=== PATIENT | female | born 1940 | race Caucasian/White ===

== ENCOUNTER 2020-08-08 16:12 | Inpatient (IN) | payer MEDICARE, SELFPAY ==
[2020-08-08] VITALS (7 sets, daily range): BP systolic 108–158; BP diastolic 82–104; PULSE 77–144; RESP 16–20; TEMP 36.2–36.7; O2SAT 93–96; BMI 46.9
--- NOTE | 2020-08-08 17:13 | XRR_ITS ---
PROCEDURE INFORMATION: Exam: XR Chest, 1 View Exam date and time: 08/08/2020 6:04 PM Age: 80 years old Clinical indication: Chest pain; Type not specified TECHNIQUE: Imaging protocol: XR of the chest Views: 1 view. COMPARISON: CR Ribs LEFT w PA Chest [id number] 01/03/2019 11:51 AM FINDINGS: Lungs: Emphysematous change , interstitial prominence, and subcentimeter nodules. Pleural space: Mild left pleural thickening. Heart/Mediastinum: Borderline cardiomegaly. Bones/joints: Left rib fractures. Osteopenia and degenerative change. Soft tissues: Poorly defined density overlying the left lung base, believed to represent epicardial fat. PA and lateral chest radiographs can be performed for confirmation, as clinically indicated. XR/XR chest 1V portable [id number] IMPRESSION: 1. Emphysematous change , interstitial prominence, and subcentimeter nodules. 2. Left rib fractures. 3. Additional findings as described above.
--- NOTE | 2020-08-08 17:14 | ECG_ITS ---
[facility] Test Date: 2020-08-08 Pat Name: Irma Nava Department: Room: Gender: Female Financial Services Technician: : 1940 Requested By: Jyotsna Richards Order Number: [id number] Althea MD: Walt Valladares M.D. Measurements Intervals [place] Rate: 123 P: [place]: -1 QRS: -38 QRSD: 99 T: 33 QT: 302 QTc: 432 Interpretive Statements ATRIAL FLUTTER/TACHYCARDIA WITH RAPID VENTRICULAR RESPONSE LOW QRS VOLTAGE IN PRECORDIAL LEADS [QRS DEFLECTION < 1.0 mV IN CHEST LEADS] PATTERN CONSISTENT WITH PULMONARY DISEASE INCOMPLETE RIGHT BUNDLE BRANCH BLOCK [90+ ms QRS DURATION, TERMINAL R IN V1/V2, 40+ ms S IN I/aVL/V4/V5/V6] INFERIOR MYOCARDIAL INFARCTION , OF INDETERMINATE AGE [40+ ms Q WAVE AND/OR ST/T ABNORMALITY IN II/aVF] No previous ECG available for comparison Electronically Signed On 08-08-2020 19:43:47 CDT by Walt Valladares M.D. [email or web address]/[id number] eva
--- NOTE | 2020-08-08 17:26 | W.ED.CHESTPA ---
HPI - Chest Pain General: Chief Complaint: Chest Pain Stated Complaint: SOB Time Seen by Provider: 08/08/20 17:13 Source: patient Mode of arrival: ambulatory Limitations: no limitations History of Present Illness: HPI narrative: Ms. Nava is a very nice 80-year-old female who comes in complaining of chest tightness and shortness of breath. She states her symptoms have been present for the past week but is gotten worse today. Worse with exertion. Patient missed a history of congestive heart failure. He is unaware of any palpitations. Chest discomfort is described as a tightness. Denies any radiation, diaphoresis, nausea vomiting or other complaints. Patient states she is had similar symptoms numerous times in the past. At this time she denies any complaints or concerns. Associated symptoms: Reports dyspnea; Deny abdominal pain, diaphoresis, fever(s), nausea, palpitations, syncope or vomiting Review of Systems Const: Denies: fever(s), chills, body aches, fatigue, malaise or diaphoresis Eyes: Denies: change in vision, blurry vision, photophobia, eye discomfort, eye discharge, eye redness or yellow eyes ENMT: Denies: throat pain, odynophagia, hoarseness, swelling of lips/tongue, ear or mastoid pain, ear discharge, change in hearing or nasal discharge Card: Reports: chest pain; Denies: palpitations, irregular heart rhythm, edema, lightheadedness, syncope, pre-syncope, dyspnea on exertion or orthopnea Resp: Reports: dyspnea; Denies: productive cough, non-productive cough, wheezing, hemoptysis or chest congestion GI: Denies: abdominal pain, nausea, vomiting, hematemesis, coffee ground emesis, heartburn, diarrhea, constipation, GI cramping, hematochezia or melena : Denies: flank pain, dysuria, urinary frequency, urinary urgency or hematuria Musc: Denies: neck pain, back pain, extremity pain, extremity swelling, joint pain, joint swelling, joint redness, joint warmth or joint stiffness Skin/Breast: Denies: rash, pruritus, erythema, skin pain or skin tenderness Neuro: Denies: headache(s), numbness in extremities, weakness in extremities, sensory changes, lack of coordination, difficulty walking, dizziness, vertigo, confusion, Slurred speech present or seizure-like activity Ru/Lymph: Denies: easy bruising, easy bleeding, petechiae, purpura or enlarged lymph nodes All/Imm: Denies: urticaria, throat swelling, tongue swelling, facial swelling or acute wheezing PFSH ED PFSH: Medical History (Updated 08/08/20 @ 21:43 by Jyotsna Saleh) Heart failure Hyperlipidemia Hypertension Polymyalgia rheumatica Surgical History (Updated 08/08/20 @ 21:27 by Issa Sheth MD) H/O foot surgery Hx of cholecystectomy Family History Other Cancer Hyperlipidemia Stroke Social History Smoking and tobacco status: never smoked Alcohol intake: never Substance/Drug Use: never Lives independently: Yes Housing: House Current occupational status: retired 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 Physical Exam Const: COMMON NORMALS: no acute distress, patient oriented x3, no limitations and alert GENERAL APPEARANCE: cooperative HENMT: COMMON NORMALS: normocephalic, atraumatic, external ears normal, EAC's normal and Normal external nose present HEAD & SCALP: normal to inspection, normocephalic and atraumatic FACE & SINUS: normal facial exam and face symmetric NOSE: Normal external nose present and Normal nares present EXTERNAL EAR: Yes external ears normal EXTERNAL AUDITORY CANAL: EAC's normal MOUTH: Normal oral and palatal mucosa present, lip normal and tongue normal Eye: COMMON NORMALS: Equal, round and reactive pupils present and conjunctivae normal GENERAL EYE: appearance normal, both eyes and all related structures ALIGNMENT: Yes alignment normal PERIORBITAL: periorbital findings normal EYELID: eyelids normal CONJUNCTIVA: Yes conjunctivae normal SCLERA: sclerae normal PUPIL: Yes Equal, round and reactive pupils present Neck/C-Spine: COMMON NORMALS: full ROM, no lymphadenopathy, supple, no meningeal signs and no JVD GENERAL: Yes normal visual inspection and Yes trachea midline Chest: COMMONS NORMALS: normal inspection of the chest and normal palpation of entire chest wall Resp: COMMON NORMALS: normal respiratory effort, No retractions, No use of accessory muscles and clear to auscultation bilaterally EFFORT & INSPECTION: Yes able to speak in complete sentences and Yes symmetric chest movement AUSCULTATION: clear to auscultation bilaterally, no crackles, no rales, no rhonchi and no wheezes Cardio: COMMON NORMALS: no JVD, regular rhythm, S1 normal heart sound present and S2 normal heart sound present RATE: tachycardic RHYTHM: regular rhythm and abnormal rhythm irregularly irregular HEART SOUNDS: S1 normal heart sound present, S2 normal heart sound present, no click, no gallops, no murmurs and no rubs GI: COMMON NORMALS: Soft to palpation and No hepatosplenomegaly present PALPATION: Yes Soft to palpation, No Tenderness to palpation present (GI), No Guarding due to palpation present (GI), No Rigid due to palpation, Yes No hepatosplenomegaly present, No Hernia present, No Palpable mass present and No Pulsatile mass present : COMMON NORMALS: Yes no CVA tenderness BLADDER/KIDNEY EXAM: Yes no CVA tenderness EXTERNAL FEMALE EXAM: No Hernia present Back/Pelvis: COMMON NORMALS: no CVA tenderness, thoracic and lumbar spine normal to inspection, no thoracic nor lumbar tenderness and thoraco-lumbar ROM normal Extremity: COMMON NORMALS: normal to inspection, full ROM, capillary refill normal, no joint enlargement, no clubbing, cyanosis or edema and no calf tenderness Neuro: COMMON NORMALS: patient oriented x3, CN's II-XII intact bilaterally, moves all extremities, no focal motor deficits and no sensory deficits noted SENSORIUM/ORIENTATION: Yes alert MENINGEAL SIGNS: Yes no meningeal signs SPEECH: speech normal Psych: COMMON NORMALS: mental status grossly normal, Normal thought process present, cooperative, normal affect, speech normal and activity/motor behavior normal SPEECH: Yes normal speech THOUGHT PROCESS: Normal thought process present Skin: COMMON NORMALS: no rashes or lesions noted, turgor normal, no jaundice, no petechiae and no mottling GENERAL SKIN EXAM: no rashes or lesions noted and turgor normal Course Vital Signs: Vital signs: Vital Signs Temperature 98.0 F 08/08/20 20:33 Pulse Rate 121 H 08/08/20 20:53 Respiratory Rate 16 08/08/20 20:53 Blood Pressure 128/104 08/08/20 20:53 Pulse Oximetry 94 08/08/20 20:53 MDM - Chest Pain MDM Narrative: Medical decision making narrative: Blaze is a very nice 80-year-old female who comes in complaining of chest discomfort. Believe her complaints are primarily into her A. fib with RVR. She is given dose of Lovenox and started on Cardizem drip here. Patient is heart rate is improved but has not resolved completely. The case was endorsed to Dr. Wilkins and Dr. Sheth they agreed to admit for further evaluation and care. Lab Data: Attestation: I reviewed the patient's lab results. Labs: Lab Results 08/08/20 08/08/20 08/08/20 Range/Units 17:25 17:25 17:25 WBC 9.0 (4.0-10.0) 10^3/ uL RBC 4.05 L (4.1-5.3) 10^6/u L Hgb 12.5 (11.5-15.3) g/dL Hct 39.9 (37.0-47.0) % MCV 98.5 (81-99) fL MCH 30.9 (28.0-34.0) pg MCHC 31.3 (30.0-36.0) g/dL RDW 13.3 (12.1-15.1) % Plt Count 241 (130-400) 10^3/c mm MPV 9.0 (7.4-10.4) fL Neut % (Auto) 80.5 % Lymph % (Auto) 13.3 % Rains % (Auto) 4.8 % Eos % (Auto) 0.7 % Baso % (Auto) 0.3 % Neut # (Auto) 7.26 (1.8-7.7) 10^3/u L Lymph # (Auto) 1.2 (0.8-4.8) 10^3/u L Rains # (Auto) 0.4 (0.2-0.9) 10^3/u L Eos # (Auto) 0.1 (0.0-0.8) 10^3/u L Baso # (Auto) 0.0 (0.0-0.1) 10^3/u L Nucleated RBC % (a uto) 0 % Nucleated RBCs # 0.0 /100WBC Sodium 131 L (136-145) mmol/L Potassium 5.2 H (3.5-5.1) mmol/L Chloride 96 L (98-107) mmol/L Carbon Dioxide 28 (22-29) mmol/L Anion Gap 12.2 (5-19) BUN 14 (8-23) mg/dL Creatinine 0.9 (0.5-0.9) mg/dL GFR Calculation Not Reportable Glucose 116 H (65-115) mg/dL Calculated Osmolal ity 273 L (285-295) mOsm/k g Calcium 9.2 (8.5-10.5) mg/dL Magnesium 2.2 (1.7-2.3) mg/dL Total Bilirubin 0.2 (0.15-1.2) mg/dL AST 16 (0-32) U/L ALT 19 (0-33) U/L Alkaline Phosphata se 50 (35-105) IU/L Troponin T Baselin e 11 H (0-10) ng/L Total Protein 5.9 L (6.6-8.7) g/dL Albumin 3.8 (3.5-5.2) g/dL Globulin 2.1 (1.3-4.6) g/dL TSH 0.84 (0.27-4.20) uIU/ mL Imaging Data^: CXR: Attestation: I personally reviewed and interpreted this imaging study as follows: My impression: No acute cardiopulmonary findings. EKG Data^: EKG 1: Attestation: I personally reviewed and interpreted this EKG as follows: EKG interpretation date: 08/08/20 EKG interpretation time: 16:51 Interpretation: Atrial fibrillation/flutter with a ventricular rate of 123 beats a minute, left axis deviation, nonspecific ST and T wave changes. Discharge Plan Discharge Patient Disposition: Admitted As Inpatient Admit Provider: Margo Wilkins Clinical Impression: Atrial fibrillation with rapid ventricular response Condition: Stable Interventions: ED Discharge Assessment Last Done: 08/08/20 19:58 ED Charges Last Done: 08/08/20 19:58 Discharge Date/Time: 08/08/20 19:45 Coding Level of Care Code ED Billing And Accounting Staff Assistant for Chg Fwd Exam Comprehensive
[2020-08-08 17:42] LABS: Basophils % 0.3 %; Eosinophils # 0.1 10^3/uL (0.0-0.8); Eosinophils % 0.7 %; Hematocrit 39.9 % (37.0-47.0); Hemoglobin 12.5 g/dL (11.5-15.3); Lymphocytes # 1.2 10^3/uL (0.8-4.8); Lymphocytes % 13.3 %; Mean Corpuscular HGB Conc 31.3 g/dL (30.0-36.0); Mean Corpuscular Hemoglobin 30.9 pg (28.0-34.0); Mean Corpuscular Volume 98.5 fL (81-99); Monocytes # 0.4 10^3/uL (0.2-0.9); Monocytes % 4.8 %; Neutrophils # 7.26 10^3/uL (1.8-7.7); Neutrophils % 80.5 %; Nucleated Red Blood Cells % 0 %; Platelet Count 241 10^3/cmm (130-400); Red Blood Count 4.05 10^6/uL (4.1-5.3); Red Cell Distribution Width 13.3 % (12.1-15.1)
[2020-08-08] MEDS: sodium chloride 0.9% 1,000 ML 100 ML IV (17:44)
[2020-08-08 18:02] LABS: Troponin(5th) Baseline 11 ng/L (0-10)
[2020-08-08 18:10] LABS: Alanine Aminotransferase 19 U/L (0-33); Albumin Level 3.8 g/dL (3.5-5.2); Alkaline Phosphatase 50 IU/L (35-105); Anion Gap 12.2 (5-19); Aspartate Amino Transferase 16 U/L (0-32); Blood Urea Nitrogen 14 mg/dL (8-23); Calcium 9.2 mg/dL (8.5-10.5); Carbon Dioxide 28 mmol/L (22-29); Chloride 96 mmol/L (98-107); Globulin 2.1 g/dL (1.3-4.6); Glucose 116 mg/dL (65-115); Magnesium 2.2 mg/dL (1.7-2.3); Osmolality Calculated 273 mOsm/kg (285-295); Potassium 5.2 mmol/L (3.5-5.1); Sodium 131 mmol/L (136-145); Thyroid Stimulating Hormone 0.84 uIU/mL (0.27-4.20); Total Bilirubin 0.2 mg/dL (0.15-1.2); Total Protein 5.9 g/dL (6.6-8.7)
[2020-08-08] MEDS: enoxaparin 120 mg/0.8 mL Syringe SUBCUT (19:07)
--- NOTE | 2020-08-08 19:08 | PC.NURSE ---
[place] [address] and shown to ER doctor
--- NOTE | 2020-08-08 19:14 | ECG_ITS ---
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 Measurements Intervals [place] Rate: 114 P: PA: -1 QRS: -27 QRSD: 98 T: 32 QT: 293 QTc: 405 Interpretive Statements ATRIAL FIBRILLATION WITH RAPID VENTRICULAR RESPONSE BORDERLINE LEFT AXIS DEVIATION [QRS AXIS < -20] LOW QRS VOLTAGE IN PRECORDIAL LEADS [QRS DEFLECTION < 1.0 mV IN CHEST LEADS] ABNORMAL RHYTHM ECG Compared to ECG 08/08/2020 16:51:15 Atrial flutter no longer present Incomplete right bundle-branch block no longer present Myocardial infarct finding no longer present Electronically Signed On 08-08-2020 19:57:36 CDT by Walt Valladares M.D. [id number]
--- NOTE | 2020-08-08 19:36 | PM.HP ---
Providers/Chief Complaint Admitting Physician: Margo Wilkins MD Chief Complaint: SOB History of Present Illness Irma Nava is a 80 year old female who carries preserved ejection fraction heart failure grade 2 diastolic dysfunction came in with chief complaint of worsening shortness of breath. Patient is stating that her symptoms started about 48 hours before her presentation to the ER, she has been taking spironolactone and Lasix which has not helped her reduce leg swelling, she has been experiencing orthopnea, PND, dyspnea on exertion. She has not noticed any fever, cough, productive sputum. She is stating that she experiences chest discomfort all the time 14/06. She is taking prednisone for polymyalgia rheumatica. She is not a very good historian. She is denying change in her bowel habits, denying dysuria, nausea, vomiting. She does have history of left-sided rib fractures. Diagnosis in the ER revealed new onset A. fib RVR heart rate ranging between 1 20-1 30s, she has been given full dose therapeutic Lovenox along Cardizem gtt. at the time of my evaluation heart rate is 123, Cardizem drip is running at rate 5 mg/h, EKG revealed no ischemic or infarctive changes, troponin without significant delta, chest x-ray reveals mild vascular congestion BNP is pending Review of Systems Const: Reports: chills, body aches and fatigue; Denies: fever(s) Eyes: Denies: change in vision ENMT: Denies: throat pain Card: Reports: chest pain, dyspnea on exertion and orthopnea Resp: Reports: dyspnea; Denies: productive cough or non-productive cough GI: Denies: abdominal pain, nausea or vomiting : Denies: flank pain Musc: Denies: neck pain Skin/Breast: Denies: rash Neuro: Reports: confusion and difficulty communicating thoughts Psych: Reports: memory loss Endo: Denies: polyuria Ru/Lymph: Denies: easy bruising All/Imm: Denies: urticaria Medications/Allergies Home Medications Medication Instructions Recorded Confirmed Last Taken Type Tylenol Extra Strength 500 mg PO TID 08/08/20 08/08/20 08/08/20 History alendronate 70 mg PO Q7D 08/08/20 08/08/20 08/07/20 History aspirin See Rx Instructions .ROUTE .COMPLEX 08/08/20 08/08/20 08/08/20 History cetirizine [Zyrtec] 10 mg PO QPM 08/08/20 08/08/20 08/07/20 History enalapril maleate 20 mg PO BID 08/08/20 08/08/20 08/08/20 History furosemide See Rx Instructions .ROUTE .COMPLEX 08/08/20 08/08/20 08/07/20 History hydrocodone-acetaminophen 1 tab PO 6XD PRN 08/08/20 08/08/20 08/08/20 13:00 History memantine See Rx Instructions .ROUTE .COMPLEX 08/08/20 08/08/20 08/08/20 History metoprolol succinate 50 mg PO QPM 08/08/20 08/08/20 08/07/20 History naloxone [Narcan] See Rx Instructions .ROUTE .COMPLEX 08/08/20 08/08/20 Unknown History nitroglycerin 0.4 mg SUBLINGUAL Q5M PRN 08/08/20 08/08/20 08/06/20 History pravastatin 80 mg PO BEDTIME 08/08/20 08/08/20 08/07/20 History prednisone 15 mg PO DAILY 08/08/20 08/08/20 08/08/20 History spironolactone 12.5 mg PO QAM 08/08/20 08/08/20 08/08/20 History trazodone 300 mg PO BEDTIME 08/08/20 08/08/20 08/07/20 History venlafaxine 37.5 mg PO QPM 08/08/20 08/08/20 08/07/20 History venlafaxine 75 mg PO QAM 08/08/20 08/08/20 08/08/20 History vit C,G-Fc-whada-lutein-zeaxan 1 cap PO QPM 08/08/20 08/08/20 08/07/20 History [PreserVision AREDS-2] Allergies Allergy/AdvReac Type Severity Reaction Status Date / Time fentanyl Allergy Unknown Verified 08/08/20 20:55 oxycodone Allergy Unknown Verified 08/08/20 20:55 PFSH Acute PFSH: Medical History (Updated 08/08/20 @ 21:28 by Issa Sheth MD) Heart failure Hyperlipidemia Hypertension Polymyalgia rheumatica Surgical History (Updated 08/08/20 @ 21:27 by Issa Sheth MD) H/O foot surgery Hx of cholecystectomy Family History Other Cancer Hyperlipidemia Stroke Social History Smoking and tobacco status: never smoked Alcohol intake: never Substance/Drug Use: never Lives independently: Yes Housing: House 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 fib RVR heart rate 123 Reproducible chest pain Diminished breath sounds bilaterally with mild rhonchi Distended abdomen nontender bowel sound present No STEMI 1+ pitting edema Pedal edema positive No active respiratory distress Saturating well on room air EOMI, PERRLA Patient is hard of hearing Mild hoarseness of voice No neurological deficit Data : 08/08/20 17:25 08/08/20 17:25 A&P Assessment and plan (1) New onset a-fib: Status: Acute (2) Heart failure: Status: Acute (3) Morbid obesity: Status: Acute (4) Diastolic heart failure: Status: Acute Additional A&P Information New onset A. fib RVR Zoran vasc 5 We will initiate Eliquis 5 mg twice a day, currently on Cardizem drip 5 mg/h Echo in the morning, TSH normal We will check d-dimer, no signs of underlying sepsis or pneumonia I believe possible sleep apnea has a role to play for new onset A. fib RVR with underlying history of hypertension and obesity Preserved ejection fraction heart failure exacerbation BNP is pending, clinically looks fluid overloaded Mild congestion seen on chest x-ray I would increase her Lasix dosage and hold spironolactone along enalapril because of hyperkalemia Hyperkalemia secondary to spironolactone and enalapril: On hold Full code DVT prophylaxis not indicated currently patient is on Eliquis Cardiac diet Morbid obesity: She might benefit from outpatient sleep study Overnight pulse oximetry study requested Attestations Medical Necessity Statement*: Anticipating stay in the hospital course more than 2 midnights currently need IV Cardizem for A. fib RVR with underlying exacerbation of CHF Time Spent in Patient Care: (>than 50% of time spent in counselling and/or direct pt care on unit). 40mins Coding Level of Care Code Acute Welder Apprentice Gas for Chg Fwd Diagnoses New onset a-fib I48.91 Heart failure I50.9 Morbid obesity E66.01 Diastolic heart failure I50.30
[2020-08-08 20:02] LABS: Troponin 5 2HR 10.71 ng/L (0-10)
--- NOTE | 2020-08-08 20:37 | PC.NURSE ---
PT ARRIVED TO ROOM 112-1 FROM ED. PT TRANSFERRED FROM [facility] TO BED WITH 1X ASSIST. PT IS IN A-FIB WITH RVR HR 144. ON CARDIZEM GTT 5MG/HR. VS BP 158/82, HR 144, RR 17, SPO2 96%. PT DENIES CP AT THIS TIME. PT ORIENTATED TO ROOM. WILL CONTINUE TO MONITOR.
[2020-08-08 20:55] LABS: Troponin 5 2HR Delta -0.29 ABS# (0-10)
[2020-08-08] MEDS: atorvastatin 40 mg Tablet 20 MG PO (21:19)
[2020-08-08] MEDS: trazodone 100 mg Tablet 300 MG PO (21:19)
[2020-08-08 22:03] LABS: D Dimer 0.51 ug/mIFEU (0-0.59)
[2020-08-08 22:06] LABS: NT Pro B Type Natriuretic Pept 203 pg/mL (0-450)
--- NOTE | 2020-08-08 23:14 | ECG_ITS ---
[facility] Test Date: 2020-08-09 Pat Name: Irma Nava Department: Room: 112 Gender: Female Inbound Call Center Representative: : 1940 Requested By: Jyotsna Richards Order Number: [id number] Althea MD: Melissa De Santiago M.D. Measurements Intervals [place] Rate: 81 P: 91 GA: 122 QRS: -25 QRSD: 113 T: 34 QT: 392 QTc: 458 Interpretive Statements ATRIAL FLUTTER BORDERLINE LEFT AXIS DEVIATION [QRS AXIS < -20] LOW QRS VOLTAGE IN PRECORDIAL LEADS [QRS DEFLECTION < 1.0 mV IN CHEST LEADS] MODERATE INTRAVENTRICULAR CONDUCTION DELAY [110+ ms QRS DURATION] Compared to ECG 08/08/2020 19:05:54 Intraventricular conduction delay now present T-wave abnormality now present Atrial fibrillation no longer present Electronically Signed On 08-10-2020 9:38:10 CDT by Melissa De Santiago M.D. [id number]
[2020-08-09] VITALS (10 sets, daily range): BP systolic 108–149; BP diastolic 68–102; PULSE 72–117; RESP 14–24; TEMP 36.6–36.9; O2SAT 90–97
[2020-08-09 04:47] LABS: Basophils % 0.3 %; Eosinophils # 0.2 10^3/uL (0.0-0.8); Eosinophils % 2.3 %; Hemoglobin 12.6 g/dL (11.5-15.3); Lymphocytes # 2.8 10^3/uL (0.8-4.8); Lymphocytes % 29.8 %; Mean Corpuscular HGB Conc 30.7 g/dL (30.0-36.0); Mean Platelet Volume 9.5 fL (7.4-10.4); Monocytes # 0.5 10^3/uL (0.2-0.9); Monocytes % 5.7 %; Neutrophils % 61.3 %; Nucleated Red Blood Cells % 0 %; Platelet Count 211 10^3/cmm (130-400); Red Blood Count 4.06 10^6/uL (4.1-5.3); Red Cell Distribution Width 13.2 % (12.1-15.1); White Blood Count 9.3 10^3/uL (4.0-10.0)
[2020-08-09 05:15] LABS: Magnesium 2.2 mg/dL (1.7-2.3)
[2020-08-09 05:18] LABS: Anion Gap 14.2 (5-19); Blood Urea Nitrogen 12 mg/dL (8-23); Carbon Dioxide 29 mmol/L (22-29); Chloride 97 mmol/L (98-107); Glucose 101 mg/dL (65-115); Osmolality Calculated 282 mOsm/kg (285-295); Potassium 4.2 mmol/L (3.5-5.1); Sodium 136 mmol/L (136-145)
[2020-08-09] MEDS: venlafaxine ER (24HR) 75 mg Capsule PO (06:16)
--- NOTE | 2020-08-09 06:26 | PC.NURSE ---
PT IS IN RVR WITH A CARDIZEM GTT GOING AT 5MG/HR. PT HR 110-150'S WHICH INCREASES WITH EXERTION. PT HAS A BSC THAT THEY ARE ABLE TO TRANSFER TO WITH SBA. PT DENIES PAIN AT THIS TIME. WILL CONTINUE TO MONITOR.
--- NOTE | 2020-08-09 07:25 | PC.NURSE ---
Dr. Guido at bedside to evaluate patient. Physician to adjust medication regimen. Patient short of breath with exertion, o2 sats remain in 90s on RA. Patient assisted to side of bed to eat breakfast. Nurse to continue to monitor.
[2020-08-09] MEDS: metoprolol tartrate 50 mg Tablet PO ×2 (09:05→17:40)
[2020-08-09] MEDS: apixaban 5 mg Tablet PO ×2 (09:05→17:40)
[2020-08-09] MEDS: FUROsemide 10 mg/mL SDV 4mL 40 MG IVP (09:05)
[2020-08-09] MEDS: aspirin 81 mg EC Tablet PO (09:05)
[2020-08-09] MEDS: predniSONE 10 mg Tablet 15 MG PO (09:05)
[2020-08-09] MEDS: sennosides-docusate Tablet 1 TAB PO (09:05)
--- NOTE | 2020-08-09 09:28 | P.PN_ITS ---
Subjective Subjective: Interval history: History and physical reviewed. Patient reports she feels a little bit better this morning. Still tired. Medications: Reviewed: Yes Vitals/I&O/Wt Last Vital Signs Temp 97.8 F 08/09/20 07:15 Pulse 113 H 08/09/20 07:15 Resp 21 H 08/09/20 07:15 BP 139/93 08/09/20 07:15 Pulse Ox 94 08/09/20 07:15 08/08/20 08/09/20 08/09/20 22:59 06:59 14:59 Intake Total 16.75 / 16.75 52.084 / 68.834 366 / 366 Balance 16.75 / 16.75 52.084 / 68.834 366 / 366 Weight last 48 hrs Weight 120.202 kg Physical Exam Narrative: EXAM NARRATIVE: General exam no apparent distress Cardiovascular irregular, irregular with accelerated rate. No murmur Lungs clear no wheezing or crackles Abdomen is soft nontender with positive bowel sounds Extremities 1+ bilateral edema. Data : 08/09/20 03:50 08/09/20 03:50 A&P Assessment and plan (1) New onset a-fib: Continue anticoagulation Currently on a Cardizem drip Initiate metoprolol 50 mg twice daily, and wean off Cardizem drip to try to achieve rate control. I think this will likely be sufficient to control patient's symptoms. Risks and benefits of anticoagulation discussed with the patient Noted potassium, TSH, magnesium level normal Status: Acute (2) Heart failure: Discontinue oral Lasix Placed on Lasix 40 mg IV every 24 hours Await echocardiogram Status: Acute (3) Morbid obesity: Status: Acute (4) Diastolic heart failure: See notations regarding heart failure above Status: Acute Additional A&P Information Hyperkalemia on admission. Holding Aldactone, RINKU inhibitor History of polymyalgia rheumatica. Continue prednisone History of hypertension. Initiation of metoprolol, higher dose Full code Eliquis will suffice for DVT prophylaxis Attestations Medical Necessity Statement*: Needs continued hospitalization for treatment of atrial fibrillation with rapid ventricular rate Coding Level of Care Code Acute Senior Hr Business Partner for Chg Fwd Diagnoses New onset a-fib I48.91 Heart failure I50.9 Morbid obesity E66.01 Diastolic heart failure I50.30
[2020-08-09] MEDS: HYDROcodone-acetaminophen 10-325 mg Tablet 1 TAB PO ×2 (09:56→15:28)
--- NOTE | 2020-08-09 10:50 | PC.NURSE ---
Dr. Guido updated on patient condition. Patient is a flutter HR 60s-70s. No new orders received.
--- NOTE | 2020-08-09 11:00 | PC.NURSE ---
Cardizem gtt off at 1055. Nurse to continue to monitor.
--- NOTE | 2020-08-09 16:14 | PC.NURSE ---
Dr. Guido updated on patient condition. With exertion, HR increased to 120s-130s a fib. Telephone order received to administer 500 mcg Digoxin IVP on time. Nurse to continue to monitor.
[2020-08-09] MEDS: digoxin 250 mcg/ml INJ 2 mL 500 MCG IVP (16:22)
[2020-08-09] MEDS: memantine 5 mg tablet 10 MG PO (17:40)
[2020-08-09] MEDS: venlafaxine ER (24HR) 37.5 mg Capsule PO (17:40)
--- NOTE | 2020-08-09 18:53 | PC.NURSE ---
IV in Left FA infiltrated. IV removed. Compression drsg applied to site. Patient tolerated well. 4 attempts to reinitiate IV made by 2 RNS. Second RN established a 22# IV in Right Wrist. Patient tolerated well. Nurse to continue to monitor.
--- NOTE | 2020-08-09 20:33 | USCV_ITS ---
Nava, Irma Age: 80 Gender: F : 1940 Exam Date: 08/09/2020 05:58 Ordering Phys: Issa Sheth MD Technologist: Tracee Larsen [place] [facility] [place] NEW [place] SET AFIB BP: 149 / 102 HR: 100 Rhythm: Atrial fibrillation Technical Quality: Adequate MEASUREMENTS (Male / Female) Normal Values 2D ECHO LV Diastolic Diameter PLAX 4.5 cm 4.2 - 5.9 / 3.9 - 5.3 cm LV Systolic Diameter PLAX 3.5 cm LV Chamber Size 3.0 cm IVS Diastolic Thickness 1.2 cm 0.6 - 1.0 / 0.6 - 0.9 cm IVS Systolic Thickness 1.4 cm LVPW Diastolic Thickness 1.4 cm 0.6 - 1.0 / 0.6 - 0.9 cm LVPW Systolic Thickness 1.7 cm RV Chamber Size 2.0 cm LVOT Diameter 2.0 cm LV Ejection Fraction 2D Teich 44.3 % LV Ejection Fraction MOD 2C 26.9 % LV Ejection Fraction 2C AL 26.5 % LA Diameter 4.8 cm LA Width 3.3 cm LA Height 4.7 cm RA Width 3.7 cm RA Height 3.3 cm Aorta at Sinotubular Diameter 2.8 cm M-MODE LV Diastolic Diameter MM 5.8 cm 4.2 - 5.9 / 3.9 - 5.3 cm LV Systolic Diameter MM 4.2 cm LV Ejection Fraction MM Teich 54.5 % IVS Diastolic Thickness MM 1.3 cm 0.6 - 1.0 / 0.6 - 0.9 cm IVS Systolic Thickness MM 1.5 cm LVPW Diastolic Thickness MM 1.2 cm 0.6 - 1.0 / 0.6 - 0.9 cm LVPW Systolic Thickness MM 1.5 cm RV Diastolic Diameter MM 1.7 cm Aortic Annulus Diameter 3.0 cm LA Ao Ratio MM 1.5 MV E Point Septal Separation 0.4 cm DOPPLER AV Peak Velocity 128.0 cm/s LVOT Peak Velocity 83.0 cm/s AV Area Cont Eq vti 2.0 cm squared AV Area Cont Eq pk 2.1 cm squared MV Area PHT 5.0 cm squared MV E' Velocity 10.0 cm/s Mitral E to MV E' Ratio 8.8 Mitral E to LV E' Lateral Ratio 9.6 Mitral E to LV E' Septal Ratio 8.2 TR Peak Velocity 234.5 cm/s TR Peak Gradient 22.0 mmHg TR Mean Velocity 186.3 cm/s TR Mean Gradient 15.1 mmHg TR Velocity Time Integral 75.3 cm TV Peak E Velocity 63.0 cm/s Right Atrial Pressure 3.0 mmHg Pulmonary Artery Systolic Pressu 25.0 mmHg PV Peak Velocity 81.0 cm/s RV Acceleration Time 0.1 s RV Ejection Time 0.3 s RV AcT/ET 0.3 FINDINGS Left Ventricle Normal left ventricular size. LV systolic function is mild to moderately reduced with EF of 40 to 45%. Mild to moderate global hypokinesis is noted. Mild LVH is. Diastolic function cannot be assessed because of atrial fibrillation Right Ventricle The right ventricle is normal in size and function. Right Atrium The right atrium is normal in size. Left Atrium The left atrium is enlarged. Mitral Valve Structurally normal mitral valve without significant stenosis or prolapse. There is no mitral regurgitation. Aortic Valve Structurally normal aortic valve without significant sclerosis or stenosis. There is no aortic regurgitation. Tricuspid Valve Structurally normal tricuspid valve without significant stenosis or regurgitation. RVSP is 25+ RA pressure. IVC is not well- visualized Pulmonic Valve Structurally normal pulmonic valve without significant stenosis. There is no pulmonic regurgitation. Pericardium Normal pericardium without effusion. Aorta Normal ascending aorta dimension. CONCLUSIONS LV systolic function is mild to moderately reduced with EF of 40-45%. Diastolic function is indeterminate because of atrial fibrillation. Compared to previous echocardiogram from 2014, EF is mildly reduced. Shane Johnston MD (Electronically Signed) Final Date: 09 August 2020 08:51 S
[2020-08-09] MEDS: trazodone 150 mg Tablet 300 MG PO (21:21)
[2020-08-09] MEDS: atorvastatin 40 mg Tablet 20 MG PO (21:22)
[2020-08-09] MEDS: digoxin 250 mcg/ml INJ 2 mL IVP (22:21)
[2020-08-10] VITALS (9 sets, daily range): BP systolic 96–149; BP diastolic 54–102; PULSE 75–125; RESP 14–23; TEMP 36.6–36.9; O2SAT 92–97
[2020-08-10 03:50] LABS: Basophils % 0.5 %; Eosinophils # 0.2 10^3/uL (0.0-0.8); Eosinophils % 2.1 %; Hematocrit 38.1 % (37.0-47.0); Lymphocytes # 1.9 10^3/uL (0.8-4.8); Lymphocytes % 22.9 %; Mean Corpuscular HGB Conc 31.5 g/dL (30.0-36.0); Mean Corpuscular Hemoglobin 31.3 pg (28.0-34.0); Mean Corpuscular Volume 99.2 fL (81-99); Mean Platelet Volume 8.9 fL (7.4-10.4); Monocytes # 0.5 10^3/uL (0.2-0.9); Monocytes % 6.1 %; Neutrophils # 5.59 10^3/uL (1.8-7.7); Neutrophils % 67.8 %; Nucleated Red Blood Cells % 0 %; Platelet Count 206 10^3/cmm (130-400); Red Blood Count 3.84 10^6/uL (4.1-5.3); Red Cell Distribution Width 13.4 % (12.1-15.1); White Blood Count 8.2 10^3/uL (4.0-10.0)
[2020-08-10 04:09] LABS: Anion Gap 11.2 (5-19); Blood Urea Nitrogen 15 mg/dL (8-23); Calcium 8.9 mg/dL (8.5-10.5); Carbon Dioxide 29 mmol/L (22-29); Chloride 100 mmol/L (98-107); Glucose 100 mg/dL (65-115); Osmolality Calculated 283 mOsm/kg (285-295); Potassium 4.2 mmol/L (3.5-5.1); Sodium 136 mmol/L (136-145)
[2020-08-10] MEDS: venlafaxine ER (24HR) 75 mg Capsule PO (06:02)
--- NOTE | 2020-08-10 06:03 | PC.NURSE ---
End of shift: Patient has had a uneventful shift. Patient denies any pain at this time. Remains alert and oriented. Will continue to monitor.
[2020-08-10] MEDS: FUROsemide 10 mg/mL SDV 4mL 40 MG IVP (07:51)
[2020-08-10] MEDS: memantine 5 mg tablet PO (07:51)
[2020-08-10] MEDS: aspirin 81 mg EC Tablet PO (09:10)
[2020-08-10] MEDS: metoprolol tartrate 50 mg Tablet 75 MG PO ×2 (09:10→18:01)
[2020-08-10] MEDS: predniSONE 10 mg Tablet 15 MG PO (09:10)
[2020-08-10] MEDS: digoxin 250 mcg Tablet PO (09:10)
[2020-08-10] MEDS: apixaban 5 mg Tablet PO ×2 (09:11→18:01)
[2020-08-10] MEDS: sennosides-docusate Tablet 1 TAB PO (09:11)
[2020-08-10] MEDS: HYDROcodone-acetaminophen 10-325 mg Tablet 1 TAB PO ×3 (10:21→18:01)
--- NOTE | 2020-08-10 13:38 | PM.PN ---
Subjective Subjective: Interval history: Irma reports she is doing okay. No specific concerns. No chest pain or shortness of breath. Medications: Reviewed: Yes Vitals/I&O/Wt Last Vital Signs Temp 98.5 F 08/10/20 07:00 Pulse 77 08/10/20 11:00 Resp 14 08/10/20 11:00 BP 123/94 08/10/20 11:00 Pulse Ox 92 08/10/20 11:00 08/09/20 08/10/20 08/10/20 22:59 06:59 14:59 Intake Total 480 / 1002.584 240 / 1242.584 Balance 480 / 1002.584 240 / 1242.584 Weight last 48 hrs Weight 120.202 kg Physical Exam Narrative: EXAM NARRATIVE: General exam no apparent distress Cardiovascular irregular, irregular with better control of rate. No murmur Lungs clear no wheezing or crackles Abdomen is soft nontender with positive bowel sounds Extremities 1+ bilateral edema. Data : 08/10/20 03:23 08/10/20 03:23 A&P Assessment and plan (1) New onset a-fib: Continue anticoagulation Increase metoprolol to 75 mg twice daily Continue digoxin 0.25 mg daily that was added yesterday Noted potassium, TSH, magnesium level normal Status: Acute (2) Heart failure: Continue Lasix 40 mg IV every 24 hours Echocardiogram demonstrated diminished EF, 40 to 45%. Global hypokinesis. Status: Acute (3) Morbid obesity: Status: Acute (4) Diastolic heart failure: See notations regarding heart failure above Continue Lasix IV. She appears better compensated. Status: Acute Additional A&P Information Hyperkalemia on admission. Holding Aldactone, RINKU inhibitor History of polymyalgia rheumatica. Continue prednisone History of hypertension. Initiation of metoprolol, higher dose Full code Eliquis will suffice for DVT prophylaxis No need for laboratory tomorrow Attestations Medical Necessity Statement*: Needs continued hospitalization for adjustment of medication for better rate control with atrial fibrillation with rapid ventricular rate. Coding Level of Care Code Acute Intellectual Property Paralegal for Marla Franklin Diagnoses New onset a-fib I48.91 Heart failure I50.9 Morbid obesity E66.01 Diastolic heart failure I50.30
[2020-08-10] MEDS: venlafaxine ER (24HR) 37.5 mg Capsule PO (18:02)
[2020-08-10] MEDS: memantine 5 mg tablet 10 MG PO (18:02)
[2020-08-10] MEDS: metoprolol tartrate 25 mg Tablet PO (18:52)
--- NOTE | 2020-08-10 20:28 | PC.NURSE ---
Rounding: Patient alert and oriented. Assisted to the bathroom. Patient denies any pain. Will continue to monitor.
[2020-08-10] MEDS: atorvastatin 40 mg Tablet 20 MG PO (21:09)
[2020-08-10] MEDS: trazodone 150 mg Tablet 300 MG PO (21:09)
[2020-08-11 03:00] VITALS: BP 130/85; PULSE 89; RESP 16; TEMP 36.8; O2SAT 96
[2020-08-11] MEDS: venlafaxine ER (24HR) 75 mg Capsule PO (05:41)
[2020-08-11] MEDS: memantine 5 mg tablet PO (05:41)
[2020-08-11 06:42] LABS: Anion Gap 12.9 (5-19); Blood Urea Nitrogen 15 mg/dL (8-23); Carbon Dioxide 28 mmol/L (22-29); Chloride 98 mmol/L (98-107); Glucose 111 mg/dL (65-115); Osmolality Calculated 282 mOsm/kg (285-295); Potassium 3.9 mmol/L (3.5-5.1); Sodium 135 mmol/L (136-145)
[2020-08-11 07:00] VITALS: BP 156/84; PULSE 74; RESP 17; TEMP 36.8; O2SAT 96
[2020-08-11] MEDS: metoprolol tartrate 50 mg Tablet 100 MG PO (08:13)
[2020-08-11] MEDS: predniSONE 10 mg Tablet 15 MG PO (08:14)
[2020-08-11] MEDS: aspirin 81 mg EC Tablet PO (08:14)
[2020-08-11] MEDS: HYDROcodone-acetaminophen 10-325 mg Tablet 1 TAB PO (08:14)
[2020-08-11 08:15] VITALS: PULSE 78
[2020-08-11] MEDS: FUROsemide 40 mg Tablet PO (08:15)
[2020-08-11] MEDS: apixaban 5 mg Tablet PO (08:15)
[2020-08-11] MEDS: digoxin 250 mcg Tablet PO (08:15)
--- NOTE | 2020-08-11 09:14 | P.DS_ITS ---
Discharge Providers Date of Admission: 08/08/20 18:26 Date of Discharge: August 11, 2020 Attending Provider at Admission: Margo Wilkins MD Attending Provider at Discharge: Sony Guido MD Diagnoses at Discharge Discharge Diagnosis (1) New onset a-fib: Status: Acute (2) Heart failure: Status: Acute (3) Morbid obesity: Status: Acute (4) Diastolic heart failure: Status: Acute Reason for Visit Reason for Visit: SOB Hospital Course Hospital Course: Irma is an 80-year-old white female who presented to the hospital with new onset atrial fibrillation, flutter. She was initially put on a Cardizem drip. Her beta-katt was increased gradually during the hospital stay. Digoxin was added. Ultimately rate was controlled with 100 mg of metoprolol twice daily, and digoxin 0.25 mg daily. Cardizem was not added to the regimen secondary to her echocardiogram, showing ejection fraction of 40 to 45%. Other changes in the hospital included increase Lasix. Aldactone and patient's enalapril initially discontinued secondary to hyperkalemia but will add lisinopril 2.5 mg daily back on discharge. She was also started on Eliquis after risks and benefits of medication were discussed. Physical Exam Narrative: EXAM NARRATIVE: General exam no apparent distress Cardiovascular irregular, irregular with controlled rhythm Lungs clear Abdomen is soft positive bowel sounds Extremities no cyanosis clubbing or edema Discharge Data Data Completed and Pending: Completed Studies During Hospitalization Category Date Time Status XR chest 1V everette ble [id number] Stat Exams 08/08/20 17:13 Completed CV echo complete* [id number] Routine Ultrasound 08/09/20 20:33 Completed Labs from last 24 hours 08/11/20 06:02 Sodium 135 L Potassium 3.9 Chloride 98 Carbon Dioxide 28 Anion Gap 12.9 BUN 15 Creatinine 1.0 H GFR Calculation Not Reportable Glucose 111 Calculated Osmolal ity 282 L Calcium 9.0 Vitals: Last Vital Signs Temp 98.2 F 08/11/20 07:00 Pulse 78 08/11/20 08:15 Resp 17 08/11/20 07:00 BP 156/84 08/11/20 07:00 Pulse Ox 96 08/11/20 07:00 Discharge Plan Discharge Patient Disposition: Home Condition: Stable Prescriptions: New Eliquis 5 mg Tablet 5 mg PO BID Qty: 60 RF: 0 digoxin 250 mcg (0.25 mg) Tablet 250 mcg PO DAILY Qty: 30 RF: 0 metoprolol tartrate 50 mg Tablet 100 mg PO BID Qty: 60 RF: 0 furosemide 40 mg Tablet 40 mg PO DAILY@0800 Qty: 30 RF: 0 lisinopril 2.5 mg tablet 2.5 mg PO DAILY Qty: 30 RF: 0 Continued prednisone 10 mg tablet 15 mg PO DAILY RF: 0 venlafaxine 75 mg capsule,extended release 24hr 75 mg PO QAM RF: 0 Zyrtec 10 mg Tablet 10 mg PO QPM RF: 0 alendronate 70 mg tablet 70 mg PO Q7D RF: 0 hydrocodone-acetaminophen 10-325 mg tablet 1 tab PO 6XD PRN (Reason: Pain) RF: 0 aspirin 81 mg Tablet,Delayed Release (Dr/Ec) See Rx Instructions .ROUTE .COMPLEX RF: 0 pravastatin 80 mg tablet 80 mg PO BEDTIME RF: 0 trazodone 100 mg tablet 300 mg PO BEDTIME RF: 0 venlafaxine 37.5 mg tablet 37.5 mg PO QPM RF: 0 nitroglycerin 0.4 mg tablet, sublingual 0.4 mg sublingual Q5M PRN (Reason: Chest Pain) RF: 0 memantine 5 mg tablet See Rx Instructions .ROUTE .COMPLEX RF: 0 PreserVision AREDS-2 [id number] dy-[id number]-dt-mg Capsule 1 cap PO QPM RF: 0 Narcan 4 mg/actuation spray,non-aerosol See Rx Instructions .ROUTE .COMPLEX RF: 0 Tylenol Extra Strength 500 mg PO TID RF: 0 Discontinued metoprolol succinate 50 mg tablet extended release 24 hr 50 mg PO QPM RF: 0 enalapril maleate 20 mg tablet 20 mg PO BID RF: 0 spironolactone 25 mg tablet 12.5 mg PO QAM RF: 0 furosemide 20 mg tablet See Rx Instructions .ROUTE .COMPLEX RF: 0 Discharge Orders: Discharge Order (Routine); Ordered 08/11/20 Ordered By: Sony Guido Referrals: Walt Valladares MD [Physician] - 2 weeks Javier Sorenson RN [Emergency Nurse] - 4-7 days (BMP, digoxin level on follow-up) Discharge Diet: Cardiac Discharge Activity: Increase activity as tolerated Activity Restrictions/Additional Instructions: Take all medicine as prescribed. Follow-up with cardiology 2 weeks. Follow-up with your primary care provider 3 to 5 days with BMP and digoxin level. Discharge Attestations Time Spent in Discharge Care*: greater than 30 min Quality Metrics Clinical Quality Measures During this hospital stay, did patient experience: None Coding Level of Care Code Acute Fruit Loader Machine Operator for Chg Fwd Diagnoses New onset a-fib I48.91 Heart failure I50.9 Morbid obesity E66.01 Diastolic heart failure I50.30
--- NOTE | 2020-08-11 09:19 | PC.SOCIAL ---
Pg 2 IMM Explained to pt Pg 2 IMM. Pt verbally understands. No questions voiced. Provided pt a copy. Signed, dated, & timed a copy & placed in chart.
[2020-08-11 10:07] VITALS: BP 156/84; PULSE 78; RESP 17; TEMP 36.8; O2SAT 96
== END 2020-08-11 11:02 | disposition home or self-care (01) | DRG 308 ==
LOC: ER 17:13 → CSU 20:14
PROVIDERS: Emergency Medicine; Internal Medicine; Admitting Provider Student in an Organized Health Care Education/Training Program; Visit Provider Internal Medicine
DX: I48.91 Unspecified atrial fibrillation (principal); I50.31 Acute diastolic (congestive) heart failure; Z68.42 Body mass index [BMI] 45.0-49.9, adult; I11.0 Hypertensive heart disease with heart failure; E78.5 Hyperlipidemia, unspecified; M35.3 Polymyalgia rheumatica; E66.01 Morbid (severe) obesity due to excess calories; E87.5 Hyperkalemia; Z79.891 Long term (current) use of opiate analgesic; Z79.82 Long term (current) use of aspirin
CPT/HCPCS: 12345; 36415; 71045; 80048; 80053; 83735; 83880; 84443; 84484; 85025; 85378; 93005; 93306; 94762; 96372; 96375; 99283; J1160; J1650; J1940; J3490; J7030; J7512

== ENCOUNTER → 2020-08-27 12:20 | Outpatient (BNVA) | payer MEDICARE, SELFPAY | PROVIDERS: PCP Family Medicine; Visit Provider Internal Medicine Cardiovascular Disease | DX: I50.33 Acute on chronic diastolic (congestive) heart failure (principal); Z79.01 Long term (current) use of anticoagulants; R06.02 Shortness of breath | CPT/HCPCS: 80048; 80162; 83880; 85025 ==

== ENCOUNTER → 2020-10-03 11:55 | Outpatient (BNVA) | payer MEDICARE, SELFPAY | PROVIDERS: PCP Family Medicine; Visit Provider Family Medicine Adult Medicine | DX: I10 Essential (primary) hypertension (principal); I50.9 Heart failure, unspecified; E78.2 Mixed hyperlipidemia; I42.9 Cardiomyopathy, unspecified; I50.33 Acute on chronic diastolic (congestive) heart failure; R07.89 Other chest pain; R60.9 Edema, unspecified; R39.198 Other difficulties with micturition | CPT/HCPCS: 80053; 82043; 85025 ==

== ENCOUNTER → 2020-10-04 15:49 | Outpatient (BNVA) | payer MEDICARE, SELFPAY | PROVIDERS: PCP Family Medicine; Visit Provider Family Medicine Adult Medicine | DX: R60.0 Localized edema (principal); E78.2 Mixed hyperlipidemia; I10 Essential (primary) hypertension | CPT/HCPCS: 83880 ==

== ENCOUNTER → 2020-10-24 11:40 | Outpatient (BNVA) | payer MEDICARE, SELFPAY | PROVIDERS: PCP Family Medicine Adult Medicine; Visit Provider Internal Medicine Cardiovascular Disease | DX: I50.33 Acute on chronic diastolic (congestive) heart failure (principal); R06.02 Shortness of breath | CPT/HCPCS: 80048; 83880 ==

== ENCOUNTER → 2020-11-05 13:55 | Outpatient (BNVA) | payer MEDICARE, SELFPAY | PROVIDERS: PCP Family Medicine Adult Medicine; Visit Provider Family Medicine Adult Medicine | DX: R39.198 Other difficulties with micturition (principal); R60.9 Edema, unspecified; R82.90 Unspecified abnormal findings in urine | CPT/HCPCS: 81000; 81003 ==

== ENCOUNTER 2020-11-20 14:34 | Outpatient (CLI) | payer MEDICARE, SELFPAY ==
[2020-11-20 15:26] LABS: Add Urine Culture? Yes; Bacteria Urine 3+ /hpf; Bilirubin Urine Neg (Negative); Blood Urine Neg (Negative); Glucose Urine UA Norm (Normal); Ketones Urine Negative (Negative); Leukocyte Esterase Urine 1+ (Negative); Nitrate Urine Positive (Negative); Protein Urine Neg (Negative); Urine Appearance SL Hazy (CLEAR); Urine Color Dark Yellow (Yellow); Urobilinogen Urine Norm (Negative); pH Urine 5 (5-7)
== END 2020-11-20 14:35 | disposition home or self-care (01) ==
LOC: LAB 14:39
PROVIDERS: PCP Family Medicine Adult Medicine; Visit Provider Family Medicine
DX: N89.8 Other specified noninflammatory disorders of vagina (principal); R82.90 Unspecified abnormal findings in urine
CPT/HCPCS: 81001; 87070; 87077; 87086; 87186; 87205